=== PATIENT | male | born 1960 | race Caucasian/White ===

== ENCOUNTER 2017-01-22 09:08 | Inpatient (IN) ==
[2017-01-22] MEDS ORDERED: DILAUDID IV ONE ×2 (09:26→11:51)
[2017-01-22] MEDS ORDERED: ZOFRAN IV ONE (09:26)
[2017-01-22 09:48] LABS: HEMATOCRIT 41.5 % (42.0-52.0); HEMOGLOBIN 14.8 g/dL (14.0-18.0); MCH 32.7 PG (27-31); MCHC 35.7 g/dL (33-37); MCV 91.6 FL (81-99); MPV 10.8 FL (7.4-10.4); RBC 4.53 XMIL (4.7-6.1)
[2017-01-22 09:49] LABS: URINE CULTURE NEEDED? NO; URINE MICRO REVIEW NEEDED? NO; URINE SOURCE CLEAN CATCH
[2017-01-22 09:54] LABS: BILIRUBIN URINE NEGATIVE (NEGATIVE); BLOOD URINE MODERATE (NEGATIVE); COLOR YELLOW; GLUCOSE URINE NEGATIVE (NEGATIVE); LEUKOCYTES URINE NEGATIVE (NEGATIVE); NITRITE URINE NEGATIVE (NEGATIVE); PROTEIN URINE TRACE mg/dL (NEGATIVE); SP GRAVITY URINE 1.019; TURBIDITY URINE CLEAR (CLEAR); UROBILINOGEN URINE NORMAL (NORMAL)
[2017-01-22 09:55] LABS: UR EPITHELIAL CELLS <10 /HPF (<10); URINE BACTERIA NEGATIVE /HPF; URINE RBC TNTC /HPF (<10); URINE WBC <10 /HPF (<10)
[2017-01-22 09:59] LABS: AGAP 15; ALBUMIN 4.6 g/dL (3.5-5.0); ALKALINE PHOSPHATASE 93 U/L (32-122); BUN 22 mg/dL (8-22); CALCIUM 8.9 mg/dL (8.8-10.2); CHLORIDE 105 mmol/L (98-107); COSMO 290; GOT 20 U/L (10-34); GPT 23 U/L (10-44); POTASSIUM 3.9 mmol/L (3.5-5.1); SODIUM 143 mmol/L (136-145); TCO2 23 mmol/L (25-35); TOTAL BILIRUBIN 0.55 mg/dL (0.20-1.00)
[2017-01-22 10:13] LABS: INR 0.98; PROTIME 10.3 Seconds (9.2-11.7)
--- NOTE | 2017-01-22 10:19 | Diag Imaging Result Doc PS360 ---
FOREARM-LEFT - 01/22/2017 INDICATION: deformity TECHNIQUE: Two views COMPARISON: None FINDINGS: There is a comminuted, angulated and displaced mid-distal shaft fracture of the radius. There is disruption of the distal radial ulnar joint, with joint space of about 7 mm now. Elbow joints appear grossly intact. The radiocarpal joint appears intact. IMPRESSION: Fracture of the radius shaft with significant displacement, angulation and overlapping. Disruption of the distal radial ulnar joint. Consistent with a Galeazzi fracture. Electronically signed by Reno Rolon 01/22/2017 10:16 AM
--- NOTE | 2017-01-22 10:23 | Diag Imaging Result Doc PS360 ---
CHEST-1 VIEW - 01/22/2017 INDICATION: blunt trauma TECHNIQUE: COMPARISON: 09/29/2015 FINDINGS: The lungs are normally expanded and clear. Heart size and mediastinal contours are normal. No pneumothorax or pleural effusion. IMPRESSION: Negative exam. Electronically signed by eRno Rolon 01/22/2017 10:21 AM
--- NOTE | 2017-01-22 11:38 | Diag Imaging Result Doc PS360 ---
EXAM: THORAX/ABDOMEN/PELVIS HISTORY: blunt trauma, abd pain TECHNIQUE: CT of the chest with intravenous contrast; CT of the abdomen and pelvis with intravenous contrast. Dose reduction (clarity.) COMMENT: The thoracic aorta is normal in appearance. There are no abnormal fluid collections. There is some dependent atelectasis. No evidence of pneumothorax is present. There is a small focus of relatively denser parenchymal opacification in the posterior right lower lobe around image 69. The possibility of a pulmonary contusion cannot be excluded. There is accentuated kyphosis of the thoracic spine. There is no evidence of acute fracture or other acute bony abnormality. 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 The liver spleen pancreas and adrenal glands are within normal limits. There are apparent multiple calculi in the collecting system of the kidneys. The largest which appear to be in the lower pole of the lower moiety measuring 9 mm in diameter. There is no evidence of free intra-abdominal air or free fluid. There is diverticulosis coli. CT of the pelvis with intravenous contrast: There is been appendectomy. There is no evidence of free fluid. There are calcifications in the prostate. The regional skeleton is stable in appearance compared to 07/31/2016. IMPRESSION: 1. Small pulmonary contusion versus atelectasis in the right lower lobe. 2. No evidence of acute disease in the abdomen or pelvis. Electronically signed by Gael Guillen 01/22/2017 11:35 AM
--- NOTE | 2017-01-22 11:59 | EKG Report ---
Test Performed on : 01/22/2017 09:57:15 AM Test Reason : No Order in [employer] Blood Pressure : / mmHG Vent. Rate : 076 BPM Atrial Rate : 076 BPM P-R Int : 162 ms QRS Dur : 100 ms QT Int : 424 ms P-R-T Axes : 064 -50 052 degrees QTc Int : 477 ms Normal sinus rhythm. Left anterior fascicular block Abnormal ECG When compared with ECG of 02-JAN-2013 17:04, No significant change was found Unconfirmed Result
[2017-01-22] MEDS ORDERED: NS 1,000 ML IV SCH (12:14)
[2017-01-22] MEDS ORDERED: DUONEB (A & A) INH PRN (12:14)
[2017-01-22] MEDS ORDERED: MORPHINE IV PRN ×2 (12:14→18:00)
[2017-01-22] MEDS ORDERED: ZOFRAN IV PRN (12:14)
--- NOTE | 2017-01-22 12:22 | Diag Imaging Result Doc PS360 ---
EXAM: SHOULDER-LEFT HISTORY: blunt trauma, pain TECHNIQUE: Two views COMMENT: There is no evidence of fracture or dislocation. No other definite bony abnormalities are present. IMPRESSION: No acute disease. Electronically signed by Gael Guillen 01/22/2017 12:20 PM
[2017-01-22] MEDS ORDERED: KEFZOL 1 GM/D5W 1 GM/50 ML IVPB IV ONE (12:23)
--- NOTE | 2017-01-22 12:30 | PROVIDER DOCUMENTATION ---
This chart was entered by Chin Doss Scribe, acting as scribe for Jesus Henderson MD. HPI-Musculoskeletal Pain/Inj - GENERAL Chief Complaint: Fall Stated Complaint: fall/arm injury Time Seen by Provider: 01/22/17 09:16 Source: patient - HX OF PRESENT ILLNESS-MUSKULOSKELTAL Nature of Presenting Problem: patient is a 56 y/o M that presents post fall from about 6ft storage shed. patient landed on his left side. He had no loc. reports pain and deformity to left FA, has abdominal and cervical spine pain as well. No other injury he reports. He immediately stood up post fall. Quality of Pain: reports: dull Severity in ED: moderate, severe Onset/Duration: abrupt, just prior to arrival Timing: still present, constant Modifying Factors: worse with: movement Any recent injury?: No Locality of Occurance: Home Similar Symptoms Previously?: No Recently seen or treated by another doctor?: No - FALL INJURY Location of Pain/Injury: reports: neck, upper extremity (Left FA), abdomen Pain Radiation: reports: no radiation Reason for Fall: reports: slipped Symptoms prior to fall:: reports: none Loss of Consciousness: no loss of consciousness Injury Associated Symptoms: reports: arm pain, back/neck pain, snap/crack/pop sensation, other (abdominal pain). denies: headaches, nausea, shortness of breath, vomiting Review of Systems - Adult - REVIEW OF SYSTEMS - ADULT Constitutional: reports: no symptoms reported Eyes: denies: decreased vision, blurred vision, double vision Ears, Nose, Mouth & Throat: denies: ear discharge, epistaxis, mouth/dental pain , mouth swelling Cardiovascular: denies: chest pain, palpitations, syncope Respiratory: denies: hemoptysis, shortness of breath Gastrointestinal: reports: abdominal pain. denies: nausea, vomiting Genitourinary: reports: no symptoms reported Musculoskeletal: reports: bone pain, neck pain. denies: back pain Integumentary: reports: no symptoms reported Neurological: denies: dizziness/vertigo, headache/migraines, syncope Psychiatric: reports: no symptoms reported Endocrine: reports: no symptoms reported Hematologic/Lymphatic: reports: no symptoms reported Allergic/Immunologic: reports: no symptoms reported All Other Systems: Reviewed and Negative Past History - Adult - PAST MEDICAL HISTORY-ADULT Review of Records: reports: Old Records Reviewed, Nursing Assessment Review, Medications Reviewed Cardiovascular: reports: HTN Respiratory: reports: COPD Gastrointestinal: reports: GERD Genitourinary: reports: kidney stones Neurological: reports: CVA - PRIOR SURGERIES/PROCEDURES Surgical/Procedure History: reports: appendectomy, cholecystectomy, other ( kidney stones) - IMMUNIZATION STATUS Childhood Immunizations: See Nurse Assessment Flu Vaccine: See Nurse Assessment - FAMILY HISTORY Family History: reviewed, not pertinent - SOCIAL HISTORY Smoking: cigarettes, greater than 1 pack/day Living Situation: family Physical Exam-Injury Related - Physical Exam-Injury Related Initial Vital Signs Reviewed: Yes General Appearance: alert, mild distress Eyes: PERRL/EOMI, pink conjunctivae Head, Ears, Nose, Mouth & Throat: moist mucous membranes, normal ENT inspection Neck: full range of motion, C-spine tenderness (mild lower base). negative: ecchymosis, limited range of motion Respiratory: chest non-tender, lungs clear, normal breath sounds, no respiratory distress, no accessory muscle use Cardiovascular: regular rate, rhythm, no edema, no murmur Abdominal Exam: normal bowel sounds, soft, no organomegaly, no pulsatile mass, tenderness (LLQ mild) Back Exam: no CVA tenderness, no vertebral tenderness Extremity: no pedal edema, normal capillary refill, pelvis stable, deformity ( obvious to left forearm distally). negative: swelling Integumentary: warm/dry, abrasion (to scap and left shoulder) Neurologic: mail deliverer II-XII nml as tested, no motor/sensory deficits Psych/Mental Status: normal mood/affect, normal thought content, normal thought process, oriented x 3 - Glascow Coma Score Best Eye Response (Rickie): (4) open spontaneously Best Verbal Response (Rickie): (5) oriented Best Motor Response (Rickie): (6) obeys commands Rickie Total: 15 Progress - PLAN OF CARE/RESULTS Progress/Plan/Lab Results: Vital Signs - 8 hr 01/22/17 09:11 01/22/17 09:45 01/22/17 09:50 Temperature 99.3 F Pulse Rate 80 Respiratory Rate 20 Blood Pressure 141/95 O2 Sat by Pulse Oximetry 98 88 L 91 L 01/22/17 10:32 01/22/17 10:44 Temperature Pulse Rate Respiratory Rate Blood Pressure O2 Sat by Pulse Oximetry 89 L 93 L Laboratory Results - last 24 hr 01/22/17 01/22/17 01/22/17 09:31 09:31 09:31 WBC 7.83 RBC 4.53 L Hgb 14.8 Hct 41.5 L MCV 91.6 MCH 32.7 H MCHC 35.7 RDW Std Deviation 12.3 Plt Count 179 MPV 10.8 H PT 10.3 INR 0.98 Sodium 143 Potassium 3.9 Chloride 105 Carbon Dioxide 23 L Anion Gap 15 BUN 22 Creatinine 0.8 Estimated GFR/1.73 m2 > 60 BUN/Creatinine Ratio 28 Glucose 130 H Calculated Osmolality 290 Calcium 8.9 Total Bilirubin 0.55 AST 20 ALT 23 Alkaline Phosphatase 93 Total Protein 7.0 Albumin 4.6 Globulin 2.4 Albumin/Globulin Ratio 1.9 Urine Source Urine Color Urine Turbidity Urine pH Ur Specific Newberry Urine Protein Ur Glucose (Stick) Ur Ketones (Stick) Urine Blood Urine Nitrite Urine Bilirubin Urobilinogen Dipstick Urine Leukocytes Urine WBC (Auto) Urine RBC (Auto) U Epithel Cells (Auto) Urine Bacteria (Auto) Blood Type Antibody Screen 01/22/17 01/22/17 09:31 09:33 WBC RBC Hgb Hct MCV MCH MCHC RDW Std Deviation Plt Count MPV PT INR Sodium Potassium Chloride Carbon Dioxide Anion Gap BUN Creatinine Estimated GFR/1.73 m2 BUN/Creatinine Ratio Glucose Calculated Osmolality Calcium Total Bilirubin AST ALT Alkaline Phosphatase Total Protein Albumin Globulin Albumin/Globulin Ratio Urine Source CLEAN CATCH Urine Color YELLOW Urine Turbidity CLEAR Urine pH 6.0 Ur Specific Newberry 1.019 Urine Protein TRACE A Ur Glucose (Stick) NEGATIVE Ur Ketones (Stick) NEGATIVE Urine Blood MODERATE A Urine Nitrite NEGATIVE Urine Bilirubin NEGATIVE Urobilinogen Dipstick NORMAL Urine Leukocytes NEGATIVE Urine WBC (Auto) <10 Urine RBC (Auto) TNTC A U Epithel Cells (Auto) <10 Urine Bacteria (Auto) NEGATIVE Blood Type A POSITIVE Antibody Screen NEGATIVE Orders Category Date Time Status Admit - [facility] Routine AdmDCTranf 01/22/17 12:10 Ordered NPO Diet 01/22/17 12:07 Active CHEST-1 VIEW [RAD] Stat Exams 01/22/17 09:25 Completed FOREARM-LEFT [RAD] Stat Exams 01/22/17 09:25 Completed SHOULDER-LEFT [RAD] Stat Exams 01/22/17 11:49 Taken THORAX/ABDOMEN/PELVIS [CT] Stat Exams 01/22/17 09:27 Completed CBC WITH NO DIFF [HEME] Stat Lab 01/22/17 09:31 Completed COMPREHENSIVE METABOLIC PANEL [CHEM] Stat Lab 01/22/17 09:31 Completed PROTIME WITH INR [COAG] Stat Lab 01/22/17 09:31 Completed TYPE & SCREEN [BBK] Stat Lab 01/22/17 09:31 Completed URINALYSIS W/POSS RFLX CULT [URINALYSIS] Stat Lab 01/22/17 09:33 Completed Hydromorphone [Dilaudid] Med 01/22/17 09:26 Discontinued 1 mg IV NOW ONE Hydromorphone [Dilaudid] Med 01/22/17 11:51 Discontinued 1 mg IV NOW ONE Ondansetron [Zofran] Med 01/22/17 09:26 Discontinued 4 mg IV NOW ONE EKG [EKG] Routine Ther 01/22/17 09:57 Draft Transfer/Admit Order [TRANSFER] Routine Transfer 01/22/17 12:09 Ordered 1202-Naveen LERNER with hospitalist called, will return called, ortho will be paged Result Diagrams: 01/22/17 09:31 01/22/17 09:31 - XRAY 1 XRAY Study: Chest Impression: Normal XRAY Interpretation: Negative 2 XRAY: Left XRAY Study: Forearm Impression: Abnormal XRAY Interpretation: fx of radius shaft with displacement,angulation, disruption of distal radia - CT/MRI 1 CT Study: Abdomen, Pelvis, Thorax Impression: Abnormal CT Results: small pulmonary contustion vs atelectasis, nad abd/pelv - CONSULTS/PCP/HOSPITALIST Notification #1 *Consult/PCP/Hospitalist*: Time Discussed: 12:07 Reason/Comments: keep NPO Consult Disposition: other (will consult on patient) Departure - Departure Date of Disposition Decision: 01/22/17 Time of Disposition Decision: 12:13 DIAGNOSIS: Fall from roof Qualifiers: Encounter type: initial encounter Qualified Code(s): W13.2XXA - Fall from, out of or through roof, initial encounter Fracture of forearm Qualifiers: Encounter type: initial encounter Fracture type: closed Laterality: left Qualified Code(s): S52.92XA - Unspecified fracture of left forearm, initial encounter for closed fracture Pulmonary contusion Qualifiers: Encounter type: initial encounter Laterality: right Qualified Code(s): S27.321A - Contusion of lung, unilateral, initial encounter Disposition: ADMITTED INPATIENT 09 Certified Medical Emergency: Urgent Condition: Stable Referrals and Follow-Ups: Parvin Matias CRNP [Primary Care Provider] - - Critical Care Note This patient required my direct & personal management of CC.: No This chart was documented by the indicated scribe, (Chin Doss, Scribe) and accurately reflects the services I performed and decisions made by me, Jesus Henderson MD, as attested by the provider's signature.
--- NOTE | 2017-01-22 13:42 | HISTORY AND PHYSICAL ---
PRIMARY CARE PHYSICIAN: YANN Novoa CHIEF COMPLAINT: Fall with left arm pain. HISTORY OF PRESENT ILLNESS: Mr. Mohan is a 56-year-old male with a history of nicotine dependence and COPD who presents status post fall while on the roof of a small shed. He reports getting up on the roof to do some minor repair of the shed that is about 6 feet tall. As soon as he stepped on the roof, the whole shed gave way and he fell to the ground and immediately had some left arm pain and deformity. He denies any head injury or loss of consciousness. He does have some left shoulder pain. He came to the ER for evaluation and was found to have a complex fracture of the left wrist. A CT of the chest abdomen and pelvis also revealed a small pulmonary contusion in the right lower lobe. There was also accentuated kyphosis of the thoracic spine. Patient's labs did not show anything acute. He is currently resting in bed comfortably without distress. We are now going to admit him for further treatment and observation. PAST MEDICAL HISTORY: 1. COPD. 2. Nicotine dependence. SURGICAL HISTORY: He has had a cholecystectomy, appendectomy, he has had urethral and kidney stones extracted. He has also had a TURP. SOCIAL HISTORY: Patient smokes 2 packs a day. He denies alcohol or drug use. He is . at the bedside. He works as a local a polysomnographer. FAMILY HISTORY: Mother from a stroke. Father from gunshot wound. REVIEW OF SYSTEMS: Fourteen-point review of systems obtained and found to be negative with the exception of the HPI. HOME MEDICATIONS: None. ALLERGIES: Aspirin. PHYSICAL EXAMINATION: VITAL SIGNS: Blood pressure is 165/86, heart rate is 84, respiratory rate 18, O2 saturation 95% on room air. Temperature is 99.3 degrees. GENERAL: Disheveled-appearing 56-year-old male, lying in hospital bed in no acute distress. NEUROLOGIC: The patient is awake, alert, and oriented. Follows commands without focal deficits. HEENT: Head is atraumatic, normocephalic. Pupils equal, round, reactive to light. Oral mucosa is moist. Trachea is midline. Neck is supple. There is no JVD. CHEST: Clear to auscultation bilaterally. Diminished at the bases. CARDIOVASCULAR: Regular rate and rhythm. S1-S2 is noted. No murmurs, gallops , clicks, or rubs. GI: Soft, nondistended, nontender. Bowel sounds positive. EXTREMITIES: Lower extremities without edema, clubbing or cyanosis. Pulses palpable left upper extremity. Clear deformity in the left wrist. NEUROVASCULAR: Intact. DIAGNOSTIC DATA: CT of the chest, abdomen and pelvis shows right lower lobe pulmonary contusion. Left forearm x-ray shows complex left radial fracture. Shoulder x-ray on the left is negative for acute process. Chest x-ray does not show anything acute. ASSESSMENT/PLAN: 1. Acute left wrist fracture with deformity: Patient has already seen Dr. Beatty and is scheduled for open reduction-internal fixation today. We will keep him nothing per oral and continue pain medicines and light IV fluids. 2. Pulmonary Contusion: Will order breathing treatments and aggressive pulmonary toilet, check a cxr in in the AM. 3. Chronic obstructive pulmonary disease: Not in exacerbation. We will continue to monitor and add p.r.n. nebulizers. 4. Nicotine dependence: Patient has been highly advised to quit smoking. We are going to write a nicotine patch and continue cessation education. 5. Deep venous thrombosis prophylaxis will be provided with Sequential Compression Devices and TEDs. DISPOSITION: Hopefully home the next 24-48 hours. Further recommendations to follow. Dictated by YANN Glynn for Roldan Wong MD cc: YANN Glynn MD Anna M. Dumas, CRNP [facility] FACILITYDevon
[2017-01-22] MEDS ORDERED: NICODERM PATCH TD SCH (14:19)
[2017-01-22] MEDS ORDERED: DIPRIVAN 1% ONE (14:50)
[2017-01-22] MEDS ORDERED: XYLOCAINE-MPF 2% ONE (14:50)
[2017-01-22] MEDS: DUONEB (A & A) INH SCH ×3 (15:30→23:15)
--- NOTE | 2017-01-22 15:41 | CONSULTATION ---
DATE OF CONSULTATION: 01/22/2017 PRIMARY CARE PHYSICIAN: YANN Novoa. REASON FOR CONSULTATION: Left radius fracture. HISTORY OF PRESENT ILLNESS: Mr. Mohan is a 56-year-old, male with a history of nicotine dependence, COPD who presents status post fall from the roof of a shed. He states that the roof is about 6 feet tall and he was doing some repair work when the shed gave way and he fell to the ground. He says he immediately had left arm pain and noticed a deformity and he presented to the ER for evaluation. [facility] has been consulted to evaluate the complex fracture of the left radius. PAST MEDICAL HISTORY: 1. COPD. 2. Nicotine dependence. SURGICAL HISTORY: 1. Cholecystectomy. 2. Appendectomy. 3. TURP. SOCIAL HISTORY: Smokes 2 packs a day. Denies illicit drug use or alcohol use. He is . FAMILY HISTORY: Noncontributory. HOME MEDICATIONS: None. ALLERGIES: Aspirin. PHYSICAL EXAM: General: Mr. Mohan is a 56-year-old, white male, who is lying in the hospital bed in no acute distress. Complaining of mild pain to the left arm. Neurological: He is awake and alert and oriented. He follows commands without any deficits. HEENT: Head is atraumatic, normocephalic. Pupils are equal, round, reactive to light. Chest: His respirations are even and nonlabored. Cardiovascular: Regular rate and rhythm. Extremity: Left upper extremity is currently in a splint. The splint is clean, dry and intact. There is no drainage noted. No bleeding is noted. He does have good capillary refill. I am unable to check a radial pulse at this time. He has good color to the hand. He can move the fingers. He does say he has some numbness and tingling to the fingertips. Imaging: Left forearm x-rays shows a comminuted angulated and displaced mid distal shaft fracture of the radius. The radiologist reads it as a Galeazzi fracture. ASSESSMENT AND PLAN: Acute left radius fracture. Dr. Beatty will plan to do an open reduction, internal fixation of the left radius today. We will continue to control his pain. Keep him NPO. Dr. Beatty had discussed surgery with the patient and his family. Risks and benefits have been explained. Risks include, but are not limited to, , bleeding, infection, damage to tendons, ligaments, blood vessels and possibility of blood clots and other imponderables as well as the risk of anesthesia itself. The patient and family both wished to proceed with operative management at this time. Dictated by YANN Horowitz for Phong Beatty MD cc: YANN Horowitz MD [facility]
[2017-01-22] MEDS ORDERED: MARCAINE 0.25% PF/EPI 1:200,000 ONE (16:41)
[2017-01-22] MEDS ORDERED: NEOSPORIN G.U. IRRIGANT ONE (16:41)
[2017-01-22] MEDS ORDERED: ROBINUL ONE ×2 (16:57→17:11)
[2017-01-22] MEDS ORDERED: OFIRMEV 1000 MG/ISOTONIC SOLN 1,000 MG/100 ML BOTTLE ONE (16:57)
[2017-01-22] MEDS ORDERED: TORADOL ONE (17:03)
[2017-01-22] MEDS ORDERED: DECADRON ONE (17:03)
[2017-01-22] MEDS ORDERED: ZOFRAN ONE (17:03)
[2017-01-22] MEDS ORDERED: KEFZOL 1 GM/D5W 1 GM/50 ML IVPB ONE (17:14)
[2017-01-22] MEDS ORDERED: FENTANYL ONE (17:16)
[2017-01-22] MEDS ORDERED: NEOSPORIN OINTMENT PACKET ONE (17:59)
--- NOTE | 2017-01-22 18:29 | OPERATIVE NOTE ---
PROCEDURE DATE: 01/22/2017 PREOPERATIVE DIAGNOSIS: Left comminuted radial shaft fracture with distal radial and ulnar joint dislocation, a so-called Sargent fracture. POSTOPERATIVE DIAGNOSIS: Left comminuted radial shaft fracture with distal radial and ulnar joint dislocation, a so-called Sargent fracture. PROCEDURE: Open reduction and internal fixation of left radial shaft fracture with reduction of distal radioulnar joint. ANESTHESIA: General. SURGEON: Dr. Phong Beatty 1ST AIRPLANE COVER MAKER: Kymberly Dueñas PA-C. 2ND AIRPLANE COVER MAKER: Ramona Bentley, medical student, 3rd year, MS3. COMPLICATIONS: None. BLOOD LOSS: Minimal. TOURNIQUET TIME: Close to an hour. DESCRIPTION OF PROCEDURE: The patient was brought to the operative suite and placed in supine position. After successful administration of general anesthesia, a well-padded tourniquet was placed on the left proximal arm. The left upper extremity was prepped and draped in usual sterile fashion. Arm was exsanguinated. Tourniquet insufflated to 250 torr. Using the volar Dg approach to the forearm, dissected sharply through the skin down to the brachioradialis tendon. Brachioradialis was elevated radially protecting the radial artery and the superficial radial nerve. The muscle was elevated off the fracture site exposing the fracture. The butterfly fragment was reduced and then the two ends of the radius were reduced and a volar plate was placed. A DCP plate with 3 bicortical screws proximally and 3 bicortical screws distally, two of each were locking, and then 1 interfrag screw and a butterfly fragment in the middle of the plate. Excellent reduction of the fracture was obtained in AP and lateral images. The wound was copiously irrigated. The skin edges approximated with 2-0 Vicryl. Skin was closed with nylon. The wound was injected with Marcaine and a sterile dressing and a well-padded sugar-tong splint was applied. The patient tolerated the procedure well without complication. At the end of the procedure, all counts correct x2. The patient was transferred to the recovery room in stable condition. cc: Phong Beatty MD
[2017-01-22] MEDS: LR 1,000 ML IV SCH (19:00)
[2017-01-22] MEDS ORDERED: PRILOSEC PO ONE (20:36)
[2017-01-22] MEDS: PERIDEX MT SCH (20:43)
[2017-01-22] MEDS: NORCO-10 PO PRN (20:43)
[2017-01-23] MEDS: LR 1,000 ML IV SCH ×3 (01:56→10:05)
[2017-01-23] MEDS: NORCO-10 PO PRN ×2 (01:56→06:00)
[2017-01-23] MEDS ORDERED: KEFZOL 2 GM/D5W 2 GM/50 ML IVPB IV SCH (02:15)
[2017-01-23] MEDS: DUONEB (A & A) INH SCH ×2 (02:38→07:40)
[2017-01-23 06:20] LABS: HEMATOCRIT 39.2 % (42.0-52.0); HEMOGLOBIN 13.5 g/dL (14.0-18.0); MCH 32.6 PG (27-31); MCHC 34.4 g/dL (33-37); MCV 94.7 FL (81-99); MPV 10.9 FL (7.4-10.4); RBC 4.14 XMIL (4.7-6.1)
[2017-01-23] MEDS ORDERED: EPHEDRINE ONE (06:25)
[2017-01-23 07:16] LABS: AGAP 13; BUN 20 mg/dL (8-22); CALCIUM 8.8 mg/dL (8.8-10.2); CHLORIDE 103 mmol/L (98-107); COSMO 284; POTASSIUM 4.6 mmol/L (3.5-5.1); SODIUM 140 mmol/L (136-145); TCO2 24 mmol/L (25-35)
[2017-01-23 07:45] VITALS: BP 137/76
--- NOTE | 2017-01-23 09:35 | Diag Imaging Result Doc PS360 ---
EXAM: CHEST-2 VIEWS HISTORY: hypoxia/pulmonary contusion TECHNIQUE: COMPARISON: 01/22/2017 FINDINGS: The lungs are well expanded. The heart is mildly enlarged. The vessels are not distended. There are no infiltrates. No pleural effusions. IMPRESSION: Stable chest. Electronically signed by Vamshi Ortega 01/23/2017 9:33 AM
[2017-01-23] MEDS: PERIDEX MT SCH (10:05)
--- NOTE | 2017-01-23 10:10 | PROGRESS NOTE ---
DATE: 01/23/2017 SUBJECTIVE: Grzegorz Mohan is a 56-year-old male who is postoperative day 1 from an ORIF of his left radius fracture. He has no complaints. OBJECTIVE: General: He is a well-developed, well-nourished male. He is alert, oriented, and cooperative. Extremities: His splint is intact. He can flex his fingers. Neurological: He has intact sensation in his radial, median, and ulnar nerve distribution. ASSESSMENT: Stable after left forearm open reduction, internal fixation. PLAN: We will allow him to be discharged home if cleared by Dr. Osborne. He will return to see me on , 01/31/2017. cc: Phong Beatty MD
--- NOTE | 2017-01-24 08:07 | DISCHARGE SUMMARY ---
ADMISSION DATE: 01/22/2017 DISCHARGE DATE: 01/23/2017 ADMISSION DIAGNOSES: 1. Acute left wrist fracture. 2. Pulmonary contusion. 3. Chronic obstructive pulmonary disease. 4. Nicotine dependence. DISCHARGE DIAGNOSES: Acute left wrist fracture. Pulmonary contusion. Chronic obstructive pulmonary disease. Nicotine dependence. CONSULTATIONS: Phong Beatty MD with Orthopedics DIAGNOSTIC PROCEDURES AND FINDINGS: 1. Chest x-ray done on 01/22/2017 is negative for acute process. 2. Forearm x-ray done on 01/22/2017, shows fracture of the radial shaft significant displacement, angulation and overlapping. Disruption of the distal radioulnar joint, consistent with Galeazzi fracture. 3. Chest, abdomen and pelvis CT done on 01/22/2017, shows small pulmonary contusion versus atelectasis on the right lower lobe. No evidence of acute disease in the abdomen or pelvis. 4. EKG done on 01/22/2017, shows normal sinus rhythm without acute ST or T abnormalities. Left anterior fascicular block is noted. 5. Shoulder x-ray done on 01/22/2017, shows no evidence of fracture or dislocation in left shoulder. 6. Chest x-ray done on 01/15/2017, shows stable chest without any acute abnormalities. HOSPITAL COURSE: Mr. Mohan is a 56-year-old male, who was admitted yesterday with acute left wrist fracture after falling off the roof of his 6-foot shed. He was doing some work on the shed and got up on the roof and whole building collapsed. He fell to the ground and had acute onset of left wrist pain. He came to the ER and was found to have left wrist fracture. We consulted Orthopedics, who performed an ORIF of the left wrist. Patient did also have a small pulmonary contusion in the right lung per CT of the chest. Repeat chest x-ray this morning did not show anything acute and his O2 saturations have been adequate throughout his hospitalization. His laboratory data was unremarkable. His orthopedic surgery was done without incident and this morning, he is stable for discharge home. He will be following up with Dr. Beatty on an outpatient basis on 01/31/2017. DISCHARGE MEDICATION: Edmond 10 mg 1-2 every 6 hours as needed for pain. DISCHARGE LAB: WBC 14.11, hemoglobin 13.5, hematocrit 39.2, platelet count 178, 000. Sodium 140, potassium 4.6, chloride 103, CO2 24, anion gap 13, BUN 20, creatinine 0.8, glucose 127. PHYSICAL EXAMINATION: General: This is a well-developed, well-nourished, male, lying in hospital bed in no acute distress. Neurologic: The patient is awake, alert and oriented. He follows commands without focal deficits. HEENT: Head is atraumatic and normocephalic. His pupils are equal, round, reactive to light. Oral mucosa is moist. Trachea is midline. No JVD or carotid bruits. Chest: Clear to auscultation bilaterally. CV: Regular rate and rhythm. S1-S2 is noted. No murmurs, gallops, clicks, rubs. GI: Soft, nondistended, nontender. Bowel sounds positive. Extremities: Lower extremities are without edema, clubbing or cyanosis. Left upper extremity casted. Neurovascular is intact. DISCHARGED DIET: Regular. DISCHARGE ACTIVITY: Limited weight lifting of the left arm and limited use per Dr. Beatty. DISPOSITION AND OTHER DISCHARGE INSTRUCTIONS: Patient is discharged home to self-care. He is to follow with Dr. Beatty on 01/31/2017. He is to return to the ER or call 911 for worsening complaints or concerns. We have instructed the patient not to drink alcohol or operate heavy machinery or drive while taking pain medication. We have encouraged the patient to quit smoking and directed him toward nicotine cessation if needed. He is to follow up with his PCP, YANN Novoa, within the month or sooner if needed. All questions have been answered. DISCHARGE TIME: Greater than 35 minutes. Dictated by YANN Glynn for Roldan Wong MD cc: YANN Glynn MD Anna M. Dumas, CRNP Richard S. Sharp, MD MTDD
== END 2017-01-23 10:42 | disposition home or self-care (01) ==
LOC: ED 09:08 → EDIPHOLD 09:09 → 4N 18:20
PROVIDERS: ATTEND Internal Medicine